=== PATIENT | female | born 1945 | race Caucasian/White ===

== ENCOUNTER 2019-04-16 20:58 | Emergency (ER) | payer MEDICARE ==
[~2019-04-16] VITALS: Ht 162.6 cm; Wt 86.2 kg
[2019-04-16] MEDS ORDERED: ASPIRIN 81 MG CHEW TAB PO ONE (21:15)
[2019-04-16 21:24] LABS: BASOPHILS # (AUTO) 0.1 (0.0-0.1); BASOPHILS % 0.6 % (0.0-1.0); EOSINOPHILS # (AUTO) 0.1 (0.0-0.4); EOSINOPHILS % 1.5 % (0.0-6.0); HEMATOCRIT 39.3 % (34.2-44.1); HEMOGLOBIN 12.8 g/dL (12.0-16.0); LYMPHOCYTES # (AUTO) 2.1 (1.0-3.2); LYMPHOCYTES % 25.9 % (18.0-39.1); MEAN CORPUSCULAR HEMOGLOBIN 28.6 pg (28-32); MEAN CORPUSCULAR HGB CONC 32.6 g/dL (31-35); MEAN CORPUSCULAR VOLUME 87.9 fL (81-99); MONOCYTES % 11.6 % (4.4-11.3); NEUTROPHILS % 60.3 % (38.7-80.0); PLATELET COUNT 310 x10e3/uL (140-360); RED BLOOD COUNT 4.47 x10e6/uL (3.6-5.1); RED CELL DISTRIBUTION WIDTH 13.9 % (11.7-14.4)
[2019-04-16 21:32] LABS: INR 0.92; PROTHROMBIN TIME 12.8 seconds (11.9-14.5)
[2019-04-16 21:33] LABS: PARTIAL THROMBOPLASTIN TIME 25.8 seconds (23.8-35.5)
[2019-04-16 21:40] LABS: ALANINE AMINOTRANSFERASE 20 IU/L (0-55); ALBUMIN 3.7 g/dL (3.5-5.0); ALKALINE PHOSPHATASE 68 IU/L (40-150); ANION GAP 13.7 mmol/L (8-16); BLOOD UREA NITROGEN 26 mg/dL (7-26); BUN/CREATININE RATIO 34 (6-25); CALCIUM 9.5 mg/dL (8.4-10.2); CARBON DIOXIDE 26 mmol/L (22-29); CHLORIDE 102 mmol/L (98-107); CREATINE KINASE 128 IU/L (29-168); CREATININE, SERUM 0.77 mg/dL (0.57-1.11); EST GLOMERULAR FILTRATION RATE > 60 ML/MIN (60-); GLUCOSE 95 mg/dL (74-118); POTASSIUM 3.7 mmol/L (3.5-5.1); SODIUM 138 mmol/L (136-145)
--- NOTE | 2019-04-16 22:02 | Diagnostic Imaging Report ---
EXAMINATION: CHEST SINGLE (PORTABLE) INDICATION: CHEST PAIN COMPARISON: None FINDINGS: TUBES and LINES: None. LUNGS: Lungs are well inflated. Lungs are clear. There is no evidence of pneumonia or pulmonary edema. PLEURA: No pleural effusion or pneumothorax. HEART AND MEDIASTINUM: The cardiomediastinal silhouette is unremarkable. There are atherosclerotic calcifications within the aorta. BONES AND SOFT TISSUES: No acute osseous lesion. Soft tissues are unremarkable. UPPER ABDOMEN: No free air under the diaphragm. IMPRESSION: No acute thoracic abnormality. Signed by: Dr. Ben Coon M.D. on 04/16/2019 9:59 PM
[2019-04-17 01:17] LABS: CREATINE KINASE 107 IU/L (29-168)
== END 2019-04-17 01:31 | disposition home or self-care (01) ==
LOC: ER 20:58
DX: R07.89 Other chest pain (principal); I10 Essential (primary) hypertension; E78.5 Hyperlipidemia, unspecified; F41.9 Anxiety disorder, unspecified; F32.9 Major depressive disorder, single episode, unspecified; I25.2 Old myocardial infarction
CPT/HCPCS: 36415; 71045; 80053; 82550; 82553; 83880; 84484; 85025; 85610; 85730; 93005; 99284

== ENCOUNTER 2020-03-16 00:10 | Emergency (ER) | payer MEDICARE ==
[~2020-03-16] VITALS: Ht 162.6 cm; Wt 86.2 kg
[2020-03-16] MEDS ORDERED: FENTANYL CITRATE/PF 100MCG/2 ML INJ IJ ONE (00:30)
--- NOTE | 2020-03-16 00:32 | Emergency Department Note ---
History of Present Illnes History of Present Illness Chief Complaint: Extremity Trauma/Pain History of Present Illness This is a 75 year old female Chief Complaint Comment 75 Y/O FEMALE PT AAOX3 PRESENTS TO ED WITH PAIN TO RIGHT SHOULDER FOLLOWING FALL AT HOME; PT DENIES LOC; STATES, "I TRIPPED AND FELL DOWN. Historian: Patient Arrival Mode: Car Realtime Reporter Required: No Onset (how long ago): hour(s) (1) Location: R shoulder Quality: Sharp Radiation: Reports non-radiation Severity: moderate Onset quality: sudden Duration (how long): hour(s) (1) Timing of current episode: constant Progression: unchanged Chronicity: new Context: Denies recent illness, Denies recent surgery Relieving factors: none Exacerbating factors: none Associated symptoms: Reports denies other symptoms Treatments prior to arrival: none Past Medical/Family History Physician Review I have reviewed the patient's past medical and family history. Any updates have been documented here. Past Medical History Recent Fever: No Clinical Suspicion of Infectio: No New/Unexplained Change in Ment: No Past Medical History: Hypertension, OR, Anxiety, Depression, Hyperlipedemia Other Surgery: ANGIOGRAM Social History Smoking Cessation: Never Smoker Counseling Performed: No Alcohol Use: None Any Illegal Drug Use: No Other Any Pre-Existing Lines (PICC,: No Review of Systems Review of Systems Constitutional: Reports no symptoms EENTM: Reports no symptoms Cardiovascular: Reports no symptoms Respiratory: Reports no symptoms Gastrointestinal: Reports no symptoms Genitourinary: Reports no symptoms Musculoskeletal: Reports as per HPI, Reports joint pain (R shoulder) Integumentary: Reports no symptoms Neurological: Reports no symptoms Psychological: Reports no symptoms Endocrine: Reports no symptoms Hematological/Lymphatic: Reports no symptoms Physical Exam Related Data Allergies: Coded Allergies: No Known Allergies (Unverified , 04/16/19) Triage Vital Signs Vital Signs Date Time Temp Pulse Resp B/P (MAP) Pulse Ox O2 Delivery O2 Flow Rate FiO2 03/16/20 00:15 99.0 89 18 150/74 100 Room Air Vital signs reviewed: Yes Physical Exam CONSTITUTIONAL Constitutional: Present well-developed, Present well-nourished HENT HENT: Present normocephalic, Present atraumatic, Present oropharynx clear/moist, Present nose normal HENT L/R: Present left ext ear normal, Present right ext ear normal EYES Eyes: Reports PERRL, Reports conjunctivae normal NECK Neck: Present ROM normal PULMONARY Pulmonary: Present effort normal, Present breath sounds normal CARDIOVASCULAR Cardiovascular: Present regular rhythm, Present heart sounds normal, Present capillary refill normal, Present normal rate GASTROINTESTINAL Abdominal: Present soft, Present nontender, Present bowel sounds normal GENITOURINARY Genitourinary: Present exam deferred SKIN Skin: Present warm, Present dry MUSCULOSKELETAL Musculoskeletal: Present other (R shoulder ROM limited 2/2 pain. Sensation, pulses intact to R arm. Hand exam/rom normal. No obvious deformity) NEUROLOGICAL Neurological: Present alert, Present oriented x 3, Present no gross motor or sensory deficits PSYCHOLOGICAL Psychological: Present mood/affect normal, Present judgement normal Assessment & Plan Medical Decision Making MDM 35-year-old female presents after a fall for right shoulder pain. Examination shows a normal HEENT exam, distal perfusion is intact, right arm is diffusely neurovascularly intact. No obvious deformity. X-rays show proximal humerus fract ure. She was placed in a shoulder immobilizer and will write a prescription for Johnson. Additionally will place referral for orthopedics. Instructed her to follow up with orthopedics in 2 days. Patient states ground plan she is appropriately for discharge. Reassessment Reassessment time: 00:32 Reassessment Well appearing, NAD Assessment & Plan Final Impression: (1) Proximal humerus fracture Depart Disposition: HOME, SELF-CARE Last Vital Signs Date Time Temp Pulse Resp B/P (MAP) Pulse Ox O2 Delivery O2 Flow Rate FiO2 03/16/20 00:15 99.0 89 18 150/74 100 Room Air PALMIRA BARNETT MD Mar 16, 2020 00:32
--- OUTSIDE RECORDS SUMMARY | 2020-03-16 00:39 | XMS REPORT | Continuity of Care Document ---
Author Author [facility] Organization [facility] Address [address] [place] [address] [place] [id number] Phone Unavailable Care Team Providers Care Dba Name Role Phone NONSTAFF PCP Unavailable Lucrecia CASTRO Attphys Unavailable Payers Payer Name Policy Type Policy Number Effective Date Expiration Date Ángela andrade Kelsey Care Medicare Advantage [id number] [facility] Problems This patient has no known problems. Allergies, Adverse Reactions, Alerts This patient has no known allergies or adverse reactions. Medications This patient has no known medications. Procedures This patient has no known procedures. Encounters Start Date/Time End Date/Time Encounter Type [facility] Encounter ID Source 2019-04-16 20:58:00 2019-04-17 01:31:00 Departed Emergency Room 1 LA NENA CASTRO [facility] [id number] [facility] Results Test Description Test Time Test Comments Results Result Comments Source Creatine Kinase 2019-04-17 01:18:00 Test Item Creatine Kinase (test code = 2157-6) 107 29-168 [facility] [id number] 01:18:00* Test Item Value Reference Range Interpretation Comments Creatine Kinase MB (test code = 83064-3) 1.60 0-4.3 [facility] HospitalTroponin [id number] 01:18:00* Test Item Value Reference Range Interpretation Comments Troponin I (test code = 03000-9) < 0.05 0.0-0.40 [facility]CHE[facility]LE ([facility])2019-04-16 21:58:00 [facility] [address] [place] [address] Patient Name: PINEDA ARANDA MR #: [id number] : 1945 Age/Sex: 74/F Req #: [id number] Adm Physician: Ordered by: LA NENA CASTRO MD Report #: [id number] Location: ER Room/Bed: Procedure: DX/CHEST SINGLE (PORTABLE) Exam Date: 04/16/19 Ex am Time: 2119 REPORT STATUS: Signed EXAMINATION: CHEST SINGLE (PORTABLE) INDICATION: CHEST PAIN COMPARISON: None FINDINGS: TUBES and LINES: None. LUNGS: L ungs are well inflated. Lungs are clear. There is no evidence of pneumonia or pulmonary edema. PLEURA: No pleural effusion or pneumothorax. HEAR T AND MEDIASTINUM: The cardiomediastinal silhouette is unremarkable. There ar e atherosclerotic calcifications within the aorta. BONES AND SOFT TISSUES: No acute osseous lesion. Soft tissues are unremarkable. UPPER ABDOMEN: No free air under the diaphragm. IMPRESSION: No acute thoracic abnor mality. Signed by: Dr. Ben Law M.D. on 04/16/2019 9:59 PM Dictated By: CUAUHTEMOC LAW MD, MD 58 Transcribed By: PHUONG on 04/16/192158 COPY T O: LA NENA CASTRO MD B-Type Natriuretic [id number] 21:55:00* Test Item Value Reference Range Interpretation Comments B-Type Natriuretic Peptide (test code = 71799-3) 52.6 0-100 [facility] [id number] 21:40:00* Test Item Value Reference Range Interpretation Comments Sodium Level (test code = 2951-2) 138 136-145 [facility] Ialpa8568-67-23 21:40:00* Test Item Value Reference Range Interpretation Comments Potassium Level (test code = 2823-3) 3.7 3.5-5.1 [facility] HospitalChloride [id number] 21:40:00* Test Item Value Reference Range Interpretation Comments Chloride Level (test code = 2075-0) 102 98-107 [facility] HospitalCarbon Dioxide [id number] 21:40:00* Test Item Value Reference Range Interpretation Comments Carbon Dioxide Level (test code = 2028-9) 26 22-29 [facility] HospitalAnion [id number] 21:40:00* Test Item Value Reference Range Interpretation Comments Anion Gap (test code = 65690-9) 13.7 8-16 [facility] HospitalBlood Urea Qwalzgdb1626-73-36 21:40:00* Test Item Value Reference Range Interpretation Comments Blood Urea Nitrogen (test code = 3094-0) 26 7-26 [facility] HospitalCreatinine2019-10-12 21:40:00* Test Item Value Reference Range Interpretation Comments Creatinine (test code = 2160-0) 0.77 0.57-1.11 [facility] HospitalBUN/Creatinine Ffuwy5793-41-56 21:40:00* Test Item Value Reference Range Interpretation Comments BUN/Creatinine Ratio (test code = 3097-3) 34 6-25 H [facility] HospitalEstimat Glomerular Filtration Rate 2019-04-16 21:40:00* Test Item Value Reference Range Interpretation Comments Estimat Glomerular Filtration Rate (test code = 268212635) > 60 >60 Ranges were taken from the National Kidney Disease Education Program and the [facility] Kid[facility] Foundation literature.Reference ranges:60 or greater: Hcyzmz55-03 ( for 3 consecutive months): Chronic kidney disease 15 or less: Kidney failureMemorial Hermann Southeast HospitalGlucose Qpbar6847-77-17 21:40:00* Test Item Value Reference Range Interpretation Comments Glucose Level (test code = WSJ9773) 95 74-118 [facility] HospitalCalcium Iuojy0064-28-94 21:40:00* Test Item Value Reference Range Interpretation Comments Calcium Level (test code = 90124-1) 9.5 8.4-10.2 [facility] HospitalTotal Vbhpnyxwc9134-28-86 21:40:00* Test Item Value Reference Range Interpretation Comments Total Bilirubin (test code = 1975-2) 0.3 0.2-1.2 [facility] HospitalAspartate Amino Transf (AST/SGOT) 2019-04-16 21:40:00* Test Item Value Reference Range Interpretation Comments Aspartate Amino Transf (AST/SGOT) (test code = Aspartate Amino Transf (AST/SGOT)) 22 5-34 [facility] HospitalAlanine Aminotransferase (ALT/SGPT) 2019-04-16 21:40:00* Test Item Value Reference Range Interpretation Comments Alanine Aminotransferase (ALT/SGPT) (test code = 1742-6) 20 0-55 [facility] HospitalTotal Pbvggya9948-60-10 21:40:00* Test Item Value Reference Range Interpretation Comments Total Protein (test code = 2885-2) 7.3 6.5-8.1 [facility] HospitalAlbumin2019-10-12 21:40:00* Test Item Value Reference Range Interpretation Comments Albumin (test code = 1751-7) 3.7 3.5-5.0 [facility] HospitalGlobulin2019-10-12 21:40:00* Test Item Value Reference Range Interpretation Comments Globulin (test code = 83904-3) 3.6 2.3-3.5 H [facility] HospitalAlbumin/Globulin Bepdy7215-82-34 21:40:00 * Test Item Value Reference Range Interpretation Comments Albumin/Globulin Ratio (test code = 1759-0) 1.0 0.8-2.0 [facility] HospitalAlkaline Kzgivtqvrep0015-81-07 21:40:00* Test Item Value Reference Range Interpretation Comments Alkaline Phosphatase (test code = 6768-6) 68 40-150 [facility] HospitalProthrombin Fubl7695-71-73 21:33:00* Test Item Value Reference Range Interpretation Comments Prothrombin Time (test code = 5902-2) 12.8 11.9-14.5 [facility] HospitalProthromb Time International Ratio 2019-04-16 21:33:00* Test Item Value Reference Range Interpretation Comments Prothromb Time International Ratio (test code = 6301-6) 0.92 Oral Anticoagulant Therapy INR Values:1. Low Intensity Therapy 1.5 - 2.02 . Moderate Intensity Therapy 2.0 - 3.03. High Intensity Therapy(1) 2.5 - 3. 54. High Intensity Therapy(2) 3.0 - 4.05. Panic Value INR > 5.0 [facility] HospitalActivated Partial Thromboplast Time 2019-04-16 21:33:00* Test Item Value Reference Range Interpretation Comments Activated Partial Thromboplast Time (test code = 35244-3) 25.8 23.8-35.5 [facility] HospitalWhite Blood Yiplt4162-29-56 21:25:00* Test Item Value Reference Range Interpretation Comments White Blood Count (test code = 6690-2) 8.26 4.8-10.8 [facility] HospitalRed Blood Xkmbd9377-11-14 21:25:00* Test Item Value Reference Range Interpretation Comments Red Blood Count (test code = 789-8) 4.47 3.6-5.1 [facility] HospitalHemoglobin2019-10-12 21:25:00* Test Item Value Reference Range Interpretation Comments Hemoglobin (test code = 47490-9) 12.8 12.0-16.0 [facility] HospitalHematocrit2019-10-12 21:25:00* Test Item Value Reference Range Interpretation Comments Hematocrit (test code = 4544-3) 39.3 34.2-44.1 [facility] HospitalMean Corpuscular Oihfqk9109-82-24 21:25:00* Test Item Value Reference Range Interpretation Comments Mean Corpuscular Volume (test code = 787-2) 87.9 81-99 [facility] HospitalMean Corpuscular Xmorxucsfw3160-58-69 21:25:00* Test Item Value Reference Range Interpretation Comments Mean Corpuscular Hemoglobin (test code = 785-6) 28.6 28-32 [facility] HospitalMean Corpuscular Hemoglobin Concent 2019-04-16 21:25:00* Test Item Value Reference Range Interpretation Comments Mean Corpuscular Hemoglobin Concent (test code = 786-4) 32.6 31-35 [facility] HospitalRed Cell Distribution Nnwec8148-62-06 21:25:00* Test Item Value Reference Range Interpretation Comments Red Cell Distribution Width (test code = 62767-8) 13.9 11.7 -14.4 [facility] HospitalPlatelet Iwmkd6472-62-83 21:25:00* Test Item Value Reference Range Interpretation Comments Platelet Count (test code = 777-3) 310 140-360 [facility] HospitalNeutrophils (%) (Auto)2019-04-16 21:25:00 * Test Item Value Reference Range Interpretation Comments Neutrophils (%) (Auto) (test code = 07776-0) 60.3 38.7-80.0 [facility] HospitalLymphocytes (%) (Auto)2019-04-16 21:25:00 * Test Item Value Reference Range Interpretation Comments Lymphocytes (%) (Auto) (test code = 736-9) 25.9 18.0-39.1 [facility] HospitalMonocytes (%) (Auto)2019-04-16 21:25:00* Test Item Value Reference Range Interpretation Comments Monocytes (%) (Auto) (test code = 5905-5) 11.6 4.4-11.3 H [facility] HospitalEosinophils (%) (Auto)2019-04-16 21:25:00 * Test Item Value Reference Range Interpretation Comments Eosinophils (%) (Auto) (test code = 713-8) 1.5 0.0-6.0 [facility] HospitalBasophils (%) (Auto)2019-04-16 21:25:00* Test Item Value Reference Range Interpretation Comments Basophils (%) (Auto) (test code = 706-2) 0.6 0.0-1.0 [facility] HospitalIM GRANULOCYTES %2019-04-16 21:25:00* Test Item Value Reference Range Interpretation Comments IM GRANULOCYTES % (test code = IM GRANULOCYTES %) 0.1 0.0- 1.0 [facility] HospitalNeutrophils # (Auto)2019-04-16 21:25:00* Test Item Value Reference Range Interpretation Comments Neutrophils # (Auto) (test code = 751-8) 5.0 2.1-6.9 [facility] HospitalLymphocytes # (Auto)2019-04-16 21:25:00* Test Item Value Reference Range Interpretation Comments Lymphocytes # (Auto) (test code = 44690-3) 2.1 1.0-3.2 [facility] HospitalMonocytes # (Auto)2019-04-16 21:25:00* Test Item Value Reference Range Interpretation Comments Monocytes # (Auto) (test code = 742-7) 1.0 0.2-0.8 H [facility] HospitalEosinophils # (Auto)2019-04-16 21:25:00* Test Item Value Reference Range Interpretation Comments Eosinophils # (Auto) (test code = 711-2) 0.1 0.0-0.4 [facility] HospitalBasophils # (Auto)2019-04-16 21:25:00* Test Item Value Reference Range Interpretation Comments Basophils # (Auto) (test code = 704-7) 0.1 0.0-0.1 [facility] HospitalAbsolute Immature Granulocyte (auto 2019-04-16 21:25:00* Test Item Value Reference Range Interpretation Comments Absolute Immature Granulocyte (auto (naomie t code = Absolute Immature Granulocyte (auto) 0.01 0-0.1 [facility]
--- NOTE | 2020-03-16 01:41 | Diagnostic Imaging Report ---
EXAMINATION: Head CT without contrast. HISTORY:Fall. COMPARISON:None. TECHNIQUE: Multidetector axial images were obtained from the foramen magnum to the vertex without contrast. The images were reconstructed using brain and bone algorithms. Thin section brain images were reformatted into coronal and sagittal planes. Dose modulation, iterative reconstruction, and/or weight based adjustment of the mA/kV was utilized to reduce the radiation dose to as low as reasonably achievable. Intravenous contrast: None IMAGE QUALITY: Suboptimal evaluation particularly at the level of skull base and posterior fossa structures due to streak artifacts. FINDINGS: Skull/scalp: No lytic or blastic. lesions. No surgical changes. Parenchyma: No abnormal density. No acute hemorrhage, mass or acute major vascular territorial infarct. Arteries: No density suggestive of thrombosis. Atherosclerotic calcification in bilateral carotid siphon. Dural sinuses: No abnormal density suggestive of thrombosis. Ventricles: No hydrocephalus or displacement. Mild compensated dilatation due to volume loss. Extra-axial spaces: No abnormal density. Brain volume: Mild generalized cerebral volume loss. Craniocervical junction: No mass, Chiari malformation, or basilar invagination. Sella: No mass. Paranasal/mastoid sinuses: Imaged portions unremarkable. IMPRESSION: No acute intracranial abnormality. Mild generalized cerebral volume loss. Signed by: Dr. Karen Milton M.D. on 03/16/2020 1:38 AM
[2020-03-16] MEDS ORDERED: MORPHINE SULFATE INJ 4 MG/ML INJ 1ML IM ONE (01:45)
--- NOTE | 2020-03-16 02:04 | Diagnostic Imaging Report ---
X-ray right shoulder 2 views HISTORY: Pain. COMPARISON: None available. FINDINGS: Bones: Acute comminuted right humeral head fracture. Joints: Degenerative changes. No dislocations. Soft tissues: Aortic calcifications. IMPRESSION: Acute comminuted right humeral head fracture. Displaced greater tuberosity fragment. Signed by: Azam Phillips DO on 03/16/2020 2:01 AM
--- NOTE | 2020-03-16 02:05 | Diagnostic Imaging Report ---
EXAMINATION: CHEST SINGLE (PORTABLE) INDICATION: Right shoulder pain COMPARISON: Same-day right shoulder radiograph FINDINGS: TUBES and LINES: None. LUNGS: Normal lung volumes. Lungs are clear. No consolidations. PLEURA: No pleural effusion or pneumothorax. HEART AND MEDIASTINUM: The cardiomediastinal silhouette is unremarkable. Aortic calcifications BONES AND SOFT TISSUES: Acute comminuted right humeral head fracture. Soft tissues are unremarkable. UPPER ABDOMEN: No free air under the diaphragm. IMPRESSION: Acute comminuted right humeral head fracture. No acute intrathoracic radiographic abnormality. Signed by: Azam Phillips DO on 03/16/2020 2:02 AM
--- NOTE | 2020-03-16 02:06 | Diagnostic Imaging Report ---
X-ray right elbow 3 views HISTORY: Pain. COMPARISON: None available. FINDINGS: Bones: No acute displaced fracture. Osseous alignment is within normal limits. Joints: The joint spaces are well-maintained. Mild osteophyte. Soft tissues: The soft tissues appear unremarkable. IMPRESSION: No acute radiographic abnormality. Mild degenerative changes. Signed by: Azam Phillips DO on 03/16/2020 2:03 AM
[2020-03-16 02:10] VITALS: BP 141/62
== END 2020-03-16 02:29 | disposition home or self-care (01) ==
LOC: ER 00:28
DX: S42.351A Displaced comminuted fracture of shaft of humerus, right arm, initial encounter for closed fracture (principal); M25.511 Pain in right shoulder; S00.83XA Contusion of other part of head, initial encounter; W01.0XXA Fall on same level from slipping, tripping and stumbling without subsequent striking against object, initial encounter; Y92.008 Other place in unspecified non-institutional (private) residence as the place of occurrence of the external cause; I10 Essential (primary) hypertension; E78.5 Hyperlipidemia, unspecified; F41.9 Anxiety disorder, unspecified; I25.2 Old myocardial infarction
CPT/HCPCS: 29240; 70450; 71045; 73030; 73080; 99283; J3010

== ENCOUNTER 2022-09-28 08:04 | Inpatient (IN) | payer MEDICARE ==
[~2022-09-28] VITALS: Ht 162.6 cm; Wt 86.2 kg
[2022-09-28 08:29] LABS: BASOPHILS # (AUTO) 0.1 (0.0-0.1); BASOPHILS % 0.8 % (0.0-1.0); HEMATOCRIT 41.5 % (34.2-44.1); HEMOGLOBIN 13.2 g/dL (12.0-16.0); LYMPHOCYTES # (AUTO) 0.4 (1.0-3.2); LYMPHOCYTES % 3.2 % (18.0-39.1); MEAN CORPUSCULAR HEMOGLOBIN 28.6 pg (28-32); MEAN CORPUSCULAR HGB CONC 31.8 g/dL (31-35); MONOCYTES # (AUTO) 0.5 (0.2-0.8); MONOCYTES % 3.8 % (4.4-11.3); NEUTROPHILS # (AUTO) 11.9 (2.1-6.9); NEUTROPHILS % 91.5 % (38.7-80.0); PLATELET COUNT 273 x10e3/uL (140-360); RED BLOOD COUNT 4.61 x10e6/uL (3.6-5.1); RED CELL DISTRIBUTION WIDTH 14.3 % (11.7-14.4)
[2022-09-28] MEDS ORDERED: SODIUM CHLORIDE 0.9% IV SCH (08:30)
[2022-09-28] MEDS ORDERED: CEFTRIAXONE 1 GM VIAL IV SCH (08:30)
[2022-09-28 08:41] LABS: ALBUMIN 3.6 g/dL (3.5-5.0); ALBUMIN/GLOBULIN RATIO 0.9 (0.8-2.0); ANION GAP 16.6 mmol/L (8-16); CALCIUM 9.5 mg/dL (8.4-10.2); CREATININE, SERUM 1.15 mg/dL (0.57-1.11); POTASSIUM 3.6 mmol/L (3.5-5.1)
[2022-09-28 08:53] LABS: INR 1.11; PARTIAL THROMBOPLASTIN TIME 29.7 seconds (23.8-35.5); PROTHROMBIN TIME 14.8 seconds (11.9-14.5)
[2022-09-28 09:08] LABS: CLARITY,URINE CLOUDY (CLEAR); COLOR,URINE YELLOW (YELLOW); KETONES,URINE NEGATIVE (NEGATIVE); LEUKOCYTE ESTERASE ,URINE MODERATE (NEGATIVE); NITRITE,URINE NEGATIVE (NEGATIVE); PROTEIN,URINE DIPSTICK 2+ (NEGATIVE); URINE UROBILINOGEN 0.2 mg/dL (0.2 - 1)
[2022-09-28 09:11] LABS: BACTERIA,URINE MANY /HPF; EPITHELIAL CELLS,URINE FEW /LPF; WBC,URINE (MAN) >50 /HPF (0-5)
[2022-09-28] MEDS ORDERED: SODIUM CHLORIDE 0.9% 1000ML 2,000 ML ONE (09:20)
[2022-09-28] MEDS ORDERED: ONDANSETRON HCL INJ 2MG/ML 2ML 2 MG/ML VIAL IV PRN (10:45)
[2022-09-28] MEDS ORDERED: Morphine 2mg Syringe 2 MG/ML SYR IV PRN (10:45)
[2022-09-28] MEDS ORDERED: ASPIRIN 81 MG CHEW TAB PO ONE (10:45)
[2022-09-28] MEDS ORDERED: SODIUM CHLORIDE FLUSH 10 ML SYR INJ PRN (10:45)
[2022-09-28] MEDS ORDERED: ACETAMINOPHEN 325 MG TAB PO PRN (12:00)
[2022-09-28] MEDS ORDERED: CLONIDINE HCL 0.1 MG TAB PO PRN (12:00)
[2022-09-28 15:53] LABS: CREATINE KINASE MB 17.1 ng/mL (0-5.0)
[2022-09-28 15:58] VITALS: BP 109/57
[2022-09-28 16:02] LABS: CREATINE KINASE MB 18.1 ng/mL (0-5.0)
[2022-09-28 16:10] VITALS: BP 109/57
[2022-09-28] MEDS ORDERED: ASPIRIN81 MG PO (18:18)
[2022-09-28] MEDS ORDERED: VITAMIN D350 MCG (18:18)
[2022-09-28] MEDS ORDERED: VITAMIN B-121000 MCG PO (18:18)
[2022-09-28] MEDS ORDERED: HYDROCHLOROTHIA25 MG PO (18:18)
[2022-09-28] MEDS ORDERED: CALCIUM CARBON500 MG PO (18:18)
[2022-09-28] MEDS ORDERED: ALENDRONATE SOD70 MG PO (18:18)
[2022-09-28] MEDS ORDERED: BENAZEPRIL HCL10 MG PO (18:18)
[2022-09-28] MEDS ORDERED: LEXAPRO10 MG PO (18:18)
[2022-09-28] MEDS ORDERED: ALTOPREV40 MG PO (18:18)
[2022-09-28] MEDS ORDERED: MULTI-VITAMIN1 EACH PO (18:18)
[2022-09-28 20:00] VITALS: BP 122/67
[2022-09-28] MEDS ORDERED: HEPARIN SOD (PORCINE) 5,000 UNIT/ML VIAL SC SCH (21:00)
[2022-09-29 00:36] VITALS: BP 107/64
[2022-09-29 02:39] LABS: CREATINE KINASE MB 17.3 ng/mL (0-5.0)
[2022-09-29 03:24] LABS: CHOL/HDL RATIO 2.9 (3.0-3.6)
[2022-09-29 03:44] LABS: THYROID STIMULATING HORMONE 1.542 uIU/mL (0.350-4.940)
[2022-09-29 04:00] VITALS: BP 104/59
[2022-09-29 06:17] LABS: BASOPHILS % 0.2 % (0.0-1.0); HEMATOCRIT 37.1 % (34.2-44.1); LYMPHOCYTES # (AUTO) 1.3 (1.0-3.2); LYMPHOCYTES % 10.6 % (18.0-39.1); MEAN CORPUSCULAR HEMOGLOBIN 30.6 pg (28-32); MEAN CORPUSCULAR HGB CONC 32.3 g/dL (31-35); MEAN CORPUSCULAR VOLUME 94.6 fL (81-99); MONOCYTES # (AUTO) 1.2 (0.2-0.8); MONOCYTES % 9.4 % (4.4-11.3); NEUTROPHILS % 79.4 % (38.7-80.0); PLATELET COUNT 204 x10e3/uL (140-360); RED BLOOD COUNT 3.92 x10e6/uL (3.6-5.1); RED CELL DISTRIBUTION WIDTH 15.3 % (11.7-14.4)
[2022-09-29 06:33] LABS: ALBUMIN 2.9 g/dL (3.5-5.0); ALBUMIN/GLOBULIN RATIO 0.9 (0.8-2.0); ANION GAP 14.7 mmol/L (8-16); CALCIUM 8.5 mg/dL (8.4-10.2); CREATININE, SERUM 0.76 mg/dL (0.57-1.11); POTASSIUM 3.7 mmol/L (3.5-5.1)
[2022-09-29 08:00] VITALS: BP 104/59
[2022-09-29] MEDS ORDERED: ESCITALOPRAM OXALATE 10 MG TAB PO SCH (09:00)
[2022-09-29] MEDS ORDERED: MULTIVITAMINS/MINERALS TAB PO SCH (09:00)
[2022-09-29] MEDS ORDERED: CYANOCOBALAMIN 1,000 MCG TAB PO SCH (09:00)
[2022-09-29] MEDS ORDERED: ASPIRIN 81 MG CHEW TAB PO SCH (09:00)
[2022-09-29 09:02] VITALS: BP 112/69
[2022-09-29] MEDS: OYST-CAL-D 500MG TABLET PO SCH ×2 (09:02→09:15)
[2022-09-29] MEDS ORDERED: CLOPIDOGREL BISULFATE 75 MG TAB PO STA (09:05)
[2022-09-29] MEDS ORDERED: SODIUM CHLORIDE 0.9% 1000ML 1,000 ML IV STA (09:27)
[2022-09-29] MEDS ORDERED: HEPARIN SOD/SOD CHLORIDE 2,000 ML ONE (10:27)
[2022-09-29] MEDS ORDERED: SODIUM CHLORIDE 0.9% 1000ML 1,000 ML ONE (10:27)
[2022-09-29] MEDS ORDERED: IOPAMIDOL 370 MG/ML 100 ML INFUS..BTL INJ ONE (10:31)
[2022-09-29] MEDS ORDERED: LIDOCAINE HCL 1% LOCAL INJ 20 ML VIAL ONE (10:35)
[2022-09-29] MEDS ORDERED: FENTANYL CITRATE/PF 100MCG/2 ML INJ ONE (10:39)
[2022-09-29] MEDS ORDERED: MIDAZOLAM HCL 2 MG/2 ML VIAL ONE (10:39)
[2022-09-29] MEDS ORDERED: Vancomycin IV 1 GM in SODIUM CHLORIDE 0.9% 250ML 250 ML IV ONE ×2 (11:15→12:15)
[2022-09-29] MEDS ORDERED: METOPROLOL SUCCINATE 25 MG TAB XL PO ONE ×2 (11:45→12:30)
[2022-09-29 12:35] VITALS: BP 108/53
[2022-09-29 16:05] VITALS: BP 112/62
[2022-09-29] MEDS ORDERED: ONDANSETRON HCL 4 MG ORAL DISINTEGRATING TAB PO PRN (19:30)
[2022-09-29] MEDS ORDERED: ATORVASTATIN 40 MG TAB PO SCH (21:00)
== END 2022-09-29 20:43 | disposition short-term general hospital (02) | DRG 871 ==
LOC: ER 08:08 → ERHOLD 10:33 → MED/SURG2 14:42
PROVIDERS: ADMIT Internal Medicine; ATTEND Internal Medicine
PROC: 3E03329 Introduction of Other Anti-infective into Peripheral Vein, Percutaneous Approach (ICD-10-PCS; 2022-09-28)
PROC: 4A023N7 Measurement of Cardiac Sampling and Pressure, Left Heart, Percutaneous Approach (ICD-10-PCS; principal; 2022-09-29)
PROC: B2111ZZ Fluoroscopy of Multiple Coronary Arteries using Low Osmolar Contrast (ICD-10-PCS; 2022-09-29)
PROC: B2151ZZ Fluoroscopy of Left Heart using Low Osmolar Contrast (ICD-10-PCS; 2022-09-29)
PROC: B41F1ZZ Fluoroscopy of Right Lower Extremity Arteries using Low Osmolar Contrast (ICD-10-PCS; 2022-09-29)
DX: A41.51 Sepsis due to Escherichia coli [E. coli] (principal); I21.4 Non-ST elevation (NSTEMI) myocardial infarction; N39.0 Urinary tract infection, site not specified; N17.9 Acute kidney failure, unspecified; I25.2 Old myocardial infarction; R65.20 Severe sepsis without septic shock; F41.9 Anxiety disorder, unspecified; I25.10 Atherosclerotic heart disease of native coronary artery without angina pectoris; F32.A Depression, unspecified; E78.00 Pure hypercholesterolemia, unspecified; E78.5 Hyperlipidemia, unspecified; Z20.822 Contact with and (suspected) exposure to COVID-19; M19.91 Primary osteoarthritis, unspecified site; M81.0 Age-related osteoporosis without current pathological fracture; Z74.09 Other reduced mobility
CPT/HCPCS: 36415; 51700; 71045; 76937; 80053; 80061; 81001; 82550; 82553; 83605; 84443; 84484; 85025; 85610; 85730; 87040; 87071; 87086; 87186; 87205; 87400; 93005; 93306; 93458; 99152; 99285; C1760; C1769; C1887; J0696; J1644; J2001; J2250; J2405; J7030; J7050; Q9967